=== PATIENT | female | born 1990 | race African-American/Black ===

== ENCOUNTER 2021-06-12 20:41 | Emergency (ER) | payer MEDICAID, OTHER ==
[~2021-06-12] VITALS: Ht 160 cm; Wt 111.0 kg
[~2021-06-12 20:41] MED LIST: FERR325T6 PO; HYDR-4001 PO; PROP40TA7 PO; SUMA25TA9 PO
[2021-06-12] MEDS ORDERED: SODIUM CHLORIDE 0.9% 1,000 ML IV ONE (22:30)
[2021-06-12] MEDS ORDERED: PROCHLORPERAZINE 10MG/2ML VIAL IV PRN (22:30)
[2021-06-12] MEDS ORDERED: DIPHENHYDRAMINE 50MG/ML VIAL IV ONE (22:30)
[2021-06-12 23:07] LABS: CLARITY URINE CLEAR (CLEAR); COLOR URINE YELLOW (YELLOW); KETONES URINE TRACE (NEGATIVE); LEUKOCYTE ESTERASE URINE NEGATIVE (NEGATIVE); NITRITE URINE NEGATIVE (NEGATIVE); OCCULT BLOOD URINE 3+ (NEGATIVE); PROTEIN URINE TRACE (NEGATIVE); SPECIFIC GRAVITY URINE 1.035 (1.005-1.030)
[2021-06-12 23:30] LABS: BASOPHILS % 0.7 % (0.0-2.0); EOSINOPHILS % 1.9 % (0.0-5.0); HEMATOCRIT. 29.5 % (36.0-48.0); HEMOGLOBIN. 9.1 g/dL (12.0-16.0); LYMPHOCYTES % 32.8 % (20.0-50.0); MEAN CORPUSCULAR HEMOGLOBIN 20.7 pg (28.0-32.0); MEAN CORPUSCULAR VOLUME 67.2 fL (81.0-99.0); MEAN PLATELET VOLUME 7.5 fl (7.4-10.4); MONOCYTES % 6.1 % (2.0-8.0); NEUTROPHILS % 58.5 % (40.0-76.0); PLATELET 492 x1000/uL (130-400); RED BLOOD CELL COUNT 4.38 mill/uL (4.2-5.4); RED CELL DISTRIBUTION WIDTH 22.4 % (11.6-14.6)
[2021-06-12 23:36] LABS: CHLORIDE 108 mEq/L (98-107)
[2021-06-12 23:44] LABS: HCG SCREEN NEGATIVE
[2021-06-12 23:46] LABS: INR 1.1; PROTHROMBIN TIME 11.5 sec (9.6-11.0)
[2021-06-13 02:19] LABS: PLATELET ESTIMATE INCREASED
[2021-06-13] MEDS ORDERED: AMOX-424 MT (03:19)
[2021-06-13] MEDS ORDERED: FLUT9.9S BOTHNSTRLS (03:20)
[2021-06-13 04:00] VITALS: BP 139/68
[2021-06-13] MEDS ORDERED: IOHEXOL-350 100 ML BOTTLE ONE (06:34)
== END 2021-06-13 04:15 | disposition home or self-care (01) ==
LOC: ER 20:41
DX: R51.9 Headache, unspecified (principal); J32.9 Chronic sinusitis, unspecified; Z86.718 Personal history of other venous thrombosis and embolism
CPT/HCPCS: 36415; 70496; 70498; 80053; 81003; 81025; 83690; 84703; 85025; 85610; 96361; 96374; 99285; J1200; J7030; Q9967